=== PATIENT | female | born 1950 | race Caucasian/White ===

== ENCOUNTER → 2018-08-17 | Outpatient (CLI) | payer MEDICARE, OTHER ==
[~2018-08-17] MED LIST: ACET325 PO; CALCAVITD PO; DOCU100 PO; ENOX40I SC; HYDMOR2 PO; HYDR1TAB94 PO; MULVITMIND PO; VITAMIN D-32000 UNI1 PO
[2018-08-17 15:16] LABS: Source, Urine Clean Catch
[2018-08-17 16:28] LABS: Bilirubin, Urine Neg (Neg); Blood, Urine 1+ (Neg); Glucose Qualitative, Urine Neg (Neg); Ketones, Urine 1+ (Neg); Leukocyte Esterase, Urine 3+ (Neg); Nitrite, Urine Neg (Neg); Protein, Urine 3+ (Neg); Specific Gravity, Urine 1.025 (1.003-1.022); Urobilinogen, Urine NORM (Normal)
[2018-08-17 16:57] LABS: Color, Urine Yellow (P-Yellow)
[2018-08-17 16:58] LABS: Appearance, Urine Hazy (Clear)
[2018-08-17 16:59] LABS: Bacteria Few /hpf; Mucus Light (0-Heavy); Red Blood Cells, Urine 0-2 /hpf (0-2); Squamous Epithelial Cells Few /hpf (Few)
== END | disposition home or self-care (01) ==
LOC: LAB SHORT 15:14 → LAB 15:14 → LAB FUT 08-17 11:00 → EDSTATUS 08-17 11:00
PROVIDERS: Internal Medicine
DX: R82.90 Unspecified abnormal findings in urine (principal)
CPT/HCPCS: 81001; 87077; 87086; 87147; 87186

== ENCOUNTER → 2018-08-31 | Outpatient (CLI) | payer MEDICARE, OTHER ==
[2018-08-31 12:42] LABS: Source, Urine Clean Catch
[2018-08-31 15:14] LABS: Appearance, Urine Clear (Clear); Bilirubin, Urine Neg (Neg); Blood, Urine 2+ (Neg); Color, Urine Yellow (P-Yellow); Glucose Qualitative, Urine Neg (Neg); Ketones, Urine Neg (Neg); Leukocyte Esterase, Urine 1+ (Neg); Nitrite, Urine Neg (Neg); Protein, Urine 2+ (Neg); Urobilinogen, Urine NORM (Normal)
[2018-08-31 15:58] LABS: Squamous Epithelial Cells Few /hpf (Few)
[2018-08-31 15:59] LABS: Bacteria Rare /hpf
== END | disposition home or self-care (01) ==
LOC: LAB 12:41 → LAB SHORT 12:41
PROVIDERS: Internal Medicine
DX: N39.0 Urinary tract infection, site not specified (principal)
CPT/HCPCS: 81001; 87086

== ENCOUNTER 2019-05-15 09:12 | Day surgery (SDC) | payer MEDICARE, OTHER ==
[~2019-05-15] VITALS: Ht 157.5 cm; Wt 72.5 kg
== END 2019-05-15 10:35 | disposition home or self-care (01) ==
LOC: ORSCSDS 09:12
PROVIDERS: Internal Medicine Gastroenterology
PROC: 0DJD8ZZ Inspection of Lower Intestinal Tract, Via Natural or Artificial Opening Endoscopic (ICD-10-PCS; principal; 2019-05-15 10:15)
DX: R10.9 Unspecified abdominal pain (principal); K57.30 Diverticulosis of large intestine without perforation or abscess without bleeding; K64.8 Other hemorrhoids; K21.9 Gastro-esophageal reflux disease without esophagitis; Z79.899 Other long term (current) drug therapy
CPT/HCPCS: J2704; J7120

== ENCOUNTER → 2022-05-27 | Outpatient (CLI) | payer MEDICARE, OTHER ==
[2022-05-27 14:29] LABS: Source, Urine Clean Catch
[2022-05-27 15:23] LABS: Appearance, Urine Clear (Clear); Blood, Urine Neg (Neg); Color, Urine Amber (P-Yellow); Glucose Qualitative, Urine Neg (Neg); Ketones, Urine 2+ (Neg); Leukocyte Esterase, Urine 2+ (Neg); Nitrite, Urine Neg (Neg); Protein, Urine 2+ (Neg); Specific Gravity, Urine 1.025 (1.003-1.022); Urobilinogen, Urine 2+ (Normal)
[2022-05-27 15:28] LABS: Bilirubin, Urine 1+ (Neg)
[2022-05-27 15:31] LABS: Mucus Light (0-Heavy)
[2022-05-27 15:33] LABS: Bacteria Few /hpf; Red Blood Cells, Urine 0-2 /hpf (0-2); Squamous Epithelial Cells Few /hpf (Few)
[2022-05-27 15:34] LABS: Calcium Oxalate Crystals Few /hpf; Transitional Epithelial Cells Rare /hpf (0-Rare)
== END | disposition home or self-care (01) ==
LOC: LAB SHORT 14:29 → LAB 14:29 → LAB FUT 05-26 11:35 → EDSTATUS 05-26 11:35
PROVIDERS: Internal Medicine
DX: N39.0 Urinary tract infection, site not specified (principal)
CPT/HCPCS: 81001; 87086

== ENCOUNTER 2022-11-02 06:21 | Day surgery (SDC) | payer MEDICARE, OTHER ==
[~2022-11-02] VITALS: Ht 157.5 cm; Wt 72.6 kg
[2022-11-02] VITALS (23 sets, daily range): BP systolic 137–204; BP diastolic 72–126
[2022-11-02] MEDS ORDERED: LOSA50 PO (06:39)
[2022-11-02] MEDS ORDERED: HYDCHL50 PO (06:39)
[2022-11-02] MEDS ORDERED: OMEP20ER PO (06:40)
--- NOTE | 2022-11-02 07:32 | NUR ---
PROCEDURE UNSCUCCESSFUL AT THIS TIME. PATIENT UNABLE TO TOLERATE PROBE DOWN THROAT USING CONSCIOUS SEDATION. PATIENT WILL BE RESCHEDULED MARIAM WITH ANESTHESIA. VSS.
--- NOTE | 2022-11-02 08:11 | NUR ---
PATIENT SITTING UPRIGHT IN BED. TOLERATING PO COFFEE WELL. DISCHARGE INSTRUCTIONS REVIEWED WITH PATIENT. NO CHANGES TO MEDICATIONS. PATIENT INFORMED THAT DOCTORS OFFICE WILL BE CALLING TO RESCHEDULE PROCEDURE WITH ANESTHESIA. VSS.
--- NOTE | 2022-11-02 08:19 | NUR ---
PATIENT DISCHARGED AT THIS TIME. DISCHARGE INSTRUCTIONS AND PATIENT BELONGINGS LEFT WITH PATIENT. PATIENT ABLE TO AMBULATE TO RESTROOM WITHOUT DIFFICULTY. PATIENT DISCHARGED HOME, INFORMED IN WAITING AREA OF PROCEDURE NEEDING TO BE RESCHEDULED. PIV REMOVED WITHOUT DIFFICULTY, CAHTETER INTACT.
== END 2022-11-02 08:05 | disposition home or self-care (01) ==
LOC: MHTC 06:21
DX: I33.0 Acute and subacute infective endocarditis (principal); I35.1 Nonrheumatic aortic (valve) insufficiency; R07.9 Chest pain, unspecified; R94.31 Abnormal electrocardiogram [ECG] [EKG]; Z53.09 Procedure and treatment not carried out because of other contraindication
CPT/HCPCS: 93312; 93325; A9270; J2250; J2310; J3010; J7030

== ENCOUNTER 2024-05-21 14:23 | Emergency (ER) | payer MEDICARE, OTHER ==
[~2024-05-21] VITALS: Ht 157.5 cm; Wt 68.0 kg
[~2024-05-21 14:23] MED LIST changes: +ASPI81CH PO; +ATOR40TA PO; +HYDCHL25 PO; +HYDCHL50 PO; +LOSA50 PO; +METO25ER PO; +Nexium40 MG PO; +OMEP20ER PO
[2024-05-21] MEDS ORDERED: FentaNYL Citrate 50 MCG/ML 2 ML Injection IV ONE (16:25)
[2024-05-21] MEDS ORDERED: Etomidate 2MG / ML 10ML Vial IV SCH (16:25)
[2024-05-21] MEDS ORDERED: NS 1,000 ML IV ONE (18:43)
[2024-05-21] MEDS ORDERED: Midazolam HCl 1MG / ML 2ML Vial ONE (18:43)
[2024-05-21] MEDS ORDERED: propofoL 20 ML IV SCH (18:50)
[2024-05-21] MEDS ORDERED: HYDROmorphone HCl/Pf 1MG SYR IV ONE (19:35)
[2024-05-21 20:30] VITALS: BP 180/71
[2024-05-21] MEDS ORDERED: RX Prepack 6 Tabs Oxycodone 5mg UD ONE (20:45)
== END 2024-05-21 20:55 | disposition home or self-care (01) ==
LOC: ER 14:23
DX: S63.114A Dislocation of metacarpophalangeal joint of right thumb, initial encounter (principal); S60.221A Contusion of right hand, initial encounter; X50.0XXA Overexertion from strenuous movement or load, initial encounter; Z79.82 Long term (current) use of aspirin; Z79.899 Other long term (current) drug therapy
CPT/HCPCS: 26641; 26700; 73130; 76000; 99283-25; A9270; J2250; J2704; J3010; J7030